=== PATIENT | female | born 1960 | race Caucasian/White ===

== ENCOUNTER 2019-09-10 10:25 | Outpatient (NON) | payer BC, SELFPAY ==
[2019-09-12 13:19] LABS: SARS-CoV-2 RNA PCR Negative
== END 2019-09-10 10:26 ==
PROVIDERS: PCP Emergency Medicine
DX: Z01.818 Encounter for other preprocedural examination (principal); Z11.59 Encounter for screening for other viral diseases
CPT/HCPCS: 87635; C9803; U0003

== ENCOUNTER → 2020-01-13 13:42 | Outpatient (CLI) | payer BC, SELFPAY ==
--- NOTE | ~2020-01-13 | CT_ITS ---
EXAMINATION: CT abdomen pelvis w con INDICATION: Severe right lower quadrant pain TECHNIQUE: Computed tomographic images of the abdomen and pelvis were obtained after the administrati on of 100 cc of Omnipaque 350 intravenous contrast. The dose-length product (DLP) was 1058.69 mGy-cm. Automated exposure control and iterative reconstruction technique were employed. COMPARISON: 10/07/2017 FINDINGS: The lung bases are clear. The heart size is normal. The gallbladder is surgically absent. T he liver is diffusely low in attenuation when compared with the spleen, consistent with hepatic steat osis. The spleen, pancreas, and left adrenal gland are normal. There is a stable 10 mm adenoma of the right adrenal gland. Hypoattenuating lesions in the kidneys, measuring up to 5 mm in the left kidney , are too small to characterize but likely represent cysts. No pathologically enlarged abdominal or p elvic lymph nodes are identified. There is no free intraperitoneal gas or evidence of bowel obstructi on. The appendix is normal. Surgical clips are noted at the base of the bladder. There are fat-contai seamus right inguinal and umbilical hernias. There is also a fat-containing ventral hernia immediately to the left of the umbilicus. There is moderate lumbar spondylosis. IMPRESSION: 1. No CT correlate for the patient's symptoms. 2. Fat-containing umbilical, periumbilical, and right inguinal hernias. Reviewed, dictated and finalized at location B.
--- NOTE | ~2020-01-13 | XR_ITS ---
XR hip RT 2V w AP pelvis DATE: 01/13/2020 14:00 INDICATION: Primary osteoarthritis. Right hip pain. TECHNIQUE: AP pelvis. AP and lateral views of right hip COMPARISON: None FINDINGS: Degenerative disc disease noted at L4-5 and L5-S1. The pubic symphysis and sacroiliac joint s are intact. No pelvic fracture or bone destruction is detected. Hip joint spaces are symmetric and relatively well preserved. No right hip fracture, dislocation, avascular necrosis or bone destruction is detected. IMPRESSION: Degenerative disc disease at L4-5 and L5-S1 No significant abnormality of the pelvis or right hip Reviewed, dictated and finalized at location A.
[2020-01-13 14:12] LABS: Estimated Glomerular Filt Rate > 60
== END ==
PROVIDERS: PCP Emergency Medicine; Visit Provider Emergency Medicine
DX: M15.0 Primary generalized (osteo)arthritis (principal); M51.36 Other intervertebral disc degeneration, lumbar region; M51.37 Other intervertebral disc degeneration, lumbosacral region; K42.9 Umbilical hernia without obstruction or gangrene
CPT/HCPCS: 73502; 74177; Q9967

== ENCOUNTER 2020-01-22 14:31 | Outpatient (CLI) | payer BC, SELFPAY ==
--- NOTE | 2020-01-22 14:34 | ECG_ITS ---
Measurements Intervals [place] Rate: 88 P: 44 AL: 181 QRS: 9 QRSD: 89 T: 15 QT: 375 QTc: 456 Interpretive Statements SINUS RHYTHM POSSIBLE LEFT ATRIAL ENLARGEMENT BASELINE ARTIFACT- I, II, III, AVR, AVL BORDERLINE ECG Electronically Signed On 01-22-2020 15:20:36 CDT by Eron Pollard D.O.
== END 2020-01-22 14:32 | disposition home or self-care (01) ==
LOC: ANHSURGERY 14:34
PROVIDERS: PCP Emergency Medicine; Visit Provider Surgery
DX: K42.9 Umbilical hernia without obstruction or gangrene (principal); I10 Essential (primary) hypertension; Z01.812 Encounter for preprocedural laboratory examination
CPT/HCPCS: 36415; 86850; 86900; 86901; 93005

== ENCOUNTER 2020-01-25 02:51 | Outpatient (CLI) | payer BC, SELFPAY ==
[2020-01-25 16:34] LABS: SARS-CoV-2 RNA PCR Negative
== END 2020-01-25 02:52 | disposition home or self-care (01) ==
LOC: ANHCOVIDDT 02:51
PROVIDERS: PCP Emergency Medicine; Visit Provider Surgery
DX: Z01.812 Encounter for preprocedural laboratory examination (principal); Z20.828 Contact with and (suspected) exposure to other viral communicable diseases
CPT/HCPCS: 87635; C9803; U0003

== ENCOUNTER 2020-01-27 01:07 | Day surgery (SDC) | payer BC, SELFPAY ==
[2020-01-22 13:22] VITALS: BMI 36.9
[2020-01-27] VITALS (9 sets, daily range): BP systolic 101–180; BP diastolic 50–93; PULSE 54–79; RESP 14–20; TEMP 36.4–37.4; O2SAT 96–100
[2020-01-27] MEDS: LACTATED RINGERS 1,000 ML 30 ML IV CONT ×2 (08:51→12:59)
--- NOTE | 2020-01-27 09:06 | WPDANESEPPF ---
Anes - Initial Pre Proc Eval Procedure: Operation Date: 01/27/20 10:30 Proposed Procedures p Laparoscopic Right Inguinal Hernia Repair with Mesh, Davinci Assisted, - Martinez Gaines DO s Anita-Umbilical Hernia Repair - Martinez Gaines DO Date/Time: 01/27/20 09:06 Surgeon: Martinez Gaines DO Pre Op Diagnosis: RT INGUINAL HERNIA, ANITA UMBILICAL HERNIA Patient Data Age: 60 Gender: F Height: 5 ft 9 in Weight: 114.5 kg Last Vital Signs Temp 36.4 C L 01/27/20 08:38 Pulse 79 01/27/20 08:38 Resp 20 01/27/20 08:38 BP 153/93 H 01/27/20 08:38 Pulse Ox 97 01/27/20 08:38 Allergies Allergy/AdvReac Type Severity Reaction Status Date / Time No Known Allergies Allergy Verified 01/27/20 08:40 Home Medications Medication Instructions Recorded Confirmed Type mupirocin 2 % topical ointment 1 applic TOPICAL .COMPLEX #22 gm 01/13/20 01/27/20 Rx tizanidine 2 mg capsule 2 mg PO TID PRN #90 cap 01/19/20 01/27/20 Rx amlodipine 5 mg PO DAILY 01/22/20 01/27/20 History cholecalciferol (vitamin D3) 125 mcg PO DAILY 01/22/20 01/27/20 History [Vitamin D3] losartan 50 mg PO DAILY 01/22/20 01/27/20 History Patient hx anesthesia problems: none Family hx anesthesia problems: none PMFSH Past Medical History Medical History Arthritis Arthritis of knee Depression Diabetes Generalized osteoarthritis of multiple sites HTN (hypertension) Inflammatory arthritis Right rotator cuff tendinitis (12/29/18) Shoulder injury Vision loss Weight gain Surgical History Surgical History History of bilateral oophorectomies History of History of cataract surgery History of cholecystectomy Family History Family History Father Acute myocardial infarction Mother Family history of malignant neoplasm Sibling Family history of malignant neoplasm, Onset Age: 42 Other Asthma Cerebrovascular accident Diabetes mellitus Family history of arthritis Family history of cardiovascular disease Hypertension Social History Social History Smoking status: Never smoker Alcohol intake: current Substance use: unknown Gender identity (if verbalized by the patient): Female Spiritual care concerns: No Anes - Eval Final PreProcedure Day of Procedure 01/27/20 09:06 Patient weight: obese Heart: regular rate and rhythm Lungs: clear to auscultation Airway: Mallampati scale class II Neurological: alert and oriented Last oral intake: >/= 8 hours ASA classification: III Emergent: no Anesthetic plan: proceed Anesthesia type and monitoring: general ETT and standard monitoring Informed Consent: The patient's anesthetic plan and its attendant risks and benefits were discussed with the patient/family/POA. Questions were solicited and answers provided to the satisfaction of the patient/family/POA.
[2020-01-27] MEDS: ACETAMINOPHEN 500 MG TABLET 1000 MG PO (09:42)
[2020-01-27] MEDS: KETOROLAC 15 MG/ML VIAL (*BKC) IV PUSH (09:44)
--- NOTE | 2020-01-27 10:38 | SUR.PREOP ---
update provided r/t to delay w/surgeon/acknowledges understanding. family update provided to spouse via telephone
--- NOTE | 2020-01-27 11:07 | WPDHPUPDATE1 ---
History and Physical Update Update Date/Time: 01/27/20 11:07 History and Physical has been reviewed, including an updated exam of the patient. There are NO changes in the patient's condition. Risks, benefits, and alternatives have been discussed and questions answered. Patient agrees to proceed with procedure.
[2020-01-27] MEDS: ceFAZolin 2 GM/D5W 50 ML 2 GM/50 ML BAG IVPB (11:38)
[2020-01-27] MEDS: BUPIVACAINE/EPINEPHRINE 0.5% 10 ML VIAL 30 ML INFILTRATE (12:52)
--- NOTE | 2020-01-27 13:11 | PM.PROC ---
Procedure Note - Detailed Date of procedure: 01/27/20 Pre-op diagnosis: 1. Right inguinal hernia 2. Incisional periumbilical hernia Post-op diagnosis: other (Indirect RIH, Incarcerated incisional hernia) Procedure performed: 1. Laparoscopic incarcerated incisional hernia repair 2. Laparoscopic right inguinal hernia repair with Progrip mesh, da Aicha assisted Description of procedure: Procedure as well as risks, benefits, and alternatives were discussed with the patient. Written consent was obtained and placed in chart prior to procedure. Patient was brought back to surgical suite. She was placed supine on operating table. Time-out was done to confirm patient and procedure. She was then intubated by Anesthesia Department. Her abdomen was prepped and draped in sterile fashion using chlorhexidine prep. 0.5% bupivacaine with epinephrine was infiltrated at each location for incision. An 8 mm incision was made in the left lateral abdomen, and a 5 mm Optiview trocar was advanced through the abdominal layers under direct visualization. Once inside the abdominal cavity, carbon dioxide insufflation was used to create a pneumoperitoneum. A camera was inserted and the abdominal cavity was inspected. The patient was placed in slight Trendelenburg position. An 8 millimeter incision was made on the right lateral abdomen and an 8 millimeter trocar was inserted under direct visualization. I then identified the incarcerated incisional hernia. This was just superior and to the left of the umbilicus. No significant umbilical hernia was identified. Another 5 mm incision was made in the left upper quadrant a 5 mm port was placed under direct visualization. This allowed me to laparoscopically reduce the incarcerated contents of the hernia. The hernia appeared to be incarcerated with omentum. Once the omentum was reduced, I was able to easily identify the hernia defect. This measured approximately 1 cm and was just superior and to the left of the umbilicus. An 8 mm incision was made at the skin directly over this hernia. A granny needle was then used to pass 0 Ethibond suture to repair this defect. Total of 3 sutures were placed to approximate the fascial edges of the hernia defect. These were clamped and left in place until the end of the procedure. An 8 mm port was then placed directly through this hernia defect. The robotic arms were brought up to the patient's bedside and secured to the ports. The camera and instruments were inserted. I then moved over to the robotic console and took control of the camera and instruments. After careful inspection of the abdominal cavity, I began scoring the peritoneum along the right lower quadrant using scissors with electrocautery. The preperitoneal plane was entered and this was carefully dissected caudally along the inferior epigastric vessels. Careful dissection with scissors with electrocautery and blunt dissection was used to continue this dissection. I dissected far enough laterally to allow for mesh placement, and also dissected medially to identify the pubic arch and Jeffery's ligament. The hernia sac was identified and carefully dissected posteriorly. The round ligament was also identified and the peritoneum was carefully dissected far enough posteriorly to allow for mesh placement. In order to ensure that the mesh was lying completely flat, I transected the round ligament at the deep inguinal ring using scissors with electrocautery. Once an adequate pocket was created, I then placed the mesh within the preperitoneal pocket and carefully unfolded it. The mesh was centered on the hernia defect with adequate overlap circumferentially. The inferior edge of the mesh was inspected to ensure that it was far enough away from the peritoneal edge. The mesh appeared in proper position overlying the entire myopectineal orifice. The peritoneum was then closed over the mesh using a 3-0 V-lock running absorbable suture. The robotic ins
[2020-01-27] MEDS: fentaNYL CITRATE INJ (*CRX) 100 MCG/2 ML VIAL 25 MCG IV PUSH ×4 (14:15→14:40)
== END 2020-01-27 15:15 | disposition home or self-care (01) ==
PROVIDERS: PCP Emergency Medicine; Visit Provider Surgery
PROC: 8E0Y4CZ Robotic Assisted Procedure of Lower Extremity, Percutaneous Endoscopic Approach (ICD-10-PCS; CPT 49650; principal; 2020-01-27 10:30)
PROC: (CPT 49650; 2020-01-27 10:30)
DX: K40.90 Unilateral inguinal hernia, without obstruction or gangrene, not specified as recurrent (principal); K43.0 Incisional hernia with obstruction, without gangrene; I10 Essential (primary) hypertension; E11.9 Type 2 diabetes mellitus without complications; F32.9 Major depressive disorder, single episode, unspecified; M19.90 Unspecified osteoarthritis, unspecified site; E66.9 Obesity, unspecified; Z68.37 Body mass index [BMI] 37.0-37.9, adult
CPT/HCPCS: 49650; 49655; S2900; A9270; C1781; J0690; J1100; J1885; J2405; J2704; J2710; J3010; J7120

== ENCOUNTER → 2020-05-25 16:04 | Outpatient (CLI) | payer BC, SELFPAY ==
--- NOTE | ~2020-05-25 | CT_ITS ---
EXAMINATION: CT abdomen pelvis wo con DATE: 05/25/2020 16:16 INDICATION: Right lower quadrant abdominal pain. Nausea. TECHNIQUE: Computed tomography (CT) of the abdomen and pelvis was performed without intravenous contr ast. Automated exposure control and iterative reconstruction technique were employed. The dose-length product was 1079.09 mGy-cm. COMPARISON: CT abdomen and pelvis 01/13/2020, 10/07/17 FINDINGS: The visualized portions of the lung bases are clear without pneumonia or pleural effusion. The heart size is normal. No pericardial effusion. There is diffuse hepatic steatosis. There are alcantar ges of cholecystectomy. The spleen, pancreas, and left adrenal gland are normal. There is a 12 mm mas s in right adrenal gland measuring low-attenuation, consistent with an adenoma. Right kidney is evonne l. There is a 5 mm cyst in left kidney. There is a 2 mm stone in left kidney. There is diverticulosis of the colon without evidence of diverticulitis. There are no dilated loops of bowel. The appendix i s normal. There is chronic fat stranding at the root of the small bowel mesentery, likely not clinica lly significant. There are no pathologically enlarged lymph nodes. There is no free intraperitoneal f luid. There is a right inguinal hernia containing fat. There is mild thoracic spondylosis and severe lumbar spondylosis. IMPRESSION: 1. Right inguinal hernia containing fat. Reviewed, dictated and finalized at location B. 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
== END ==
PROVIDERS: PCP Emergency Medicine; Visit Provider Emergency Medicine
DX: K40.90 Unilateral inguinal hernia, without obstruction or gangrene, not specified as recurrent (principal)
CPT/HCPCS: 74176

== ENCOUNTER → 2020-07-04 15:26 | Outpatient (CLI) | payer BC, SELFPAY ==
--- NOTE | ~2020-07-04 | MR_ITS ---
EXAMINATION: MR knee RT wo con DATE: 07/04/2020 16:14 INDICATION: Right knee pain TECHNIQUE: Magnetic resonance imaging (MRI) of the right knee was performed without intravenous contr ast. Sequences included coronal PD-weighted FSE, coronal PD-weighted FS FSE, sagittal T2-weighted FS E, sagittal PD-weighted FS FSE and axial PD weighted fat saturated FSE. COMPARISON: None. FINDINGS: Medial compartment: Complex medial meniscal tear which includes full-thickness radial tear at the posterior root and long itudinal horizontal tear extending to near the free edge at the medial extruded meniscal body. Partia l-thickness cartilage loss with smooth chondral surface and without degenerative subchondral changes along the anterior to central weightbearing medial femoral condyle and along the margins of the media l tibial plateau. Lateral compartment: Complex lateral meniscal tear with longitudinal horizontal tear extending from the anterior to the po sterior horn and with secondary tear planes at the lateral meniscal body. Deep chondral ulceration an d fissuring extending across the anterior to central weightbearing lateral femoral condyle with very subtle cortical irregularity at the central weightbearing lateral femoral condyle. There is deep alec dral fissuring along the posterior third of the lateral tibial plateau. Patellofemoral compartment: Partial-thickness patellar cartilage loss with chondral surface irregularity primarily along the apic al ridge and medial facet. Deep chondral fissuring with small subchondral osteophytes along the infer ior margin of the medial trochlea. Trochlear cartilage appears otherwise relatively preserved. Ligaments and tendons: Complete tear of the anterior cruciate ligament with increased signal intensity along the disorganize d appearing torn ligament fibers. The posterior cruciate ligament is normal. The medial collateral li gament and fibular collateral ligament complex are normal. Mild tendinopathy at the osseous insertion s of the patellar and distal quadriceps tendons. The visualized medial and lateral hamstring tendons as well as the iliotibial band are normal. Fluid: Small right knee joint effusion. No loose osteochondral bodies identified. There is a small Rendon's c yst as well as an additional ganglion cyst extending inferiorly along the anterior margin of the grac ilis tendon. Osseous/other: There is marrow edema surrounding nondisplaced impaction fractures along the posterior rim of both th e medial and lateral tibial plateaus consistent with an anterior tibial subluxation injury likely occ urring in conjunction with the anterior cruciate ligament tear. No other fractures or bone contusions . No pathologic marrow replacing process. IMPRESSION: 1. Complete anterior cruciate ligament tear and nondisplaced likely impaction fracture along the post erior rim of the medial and lateral tibial plateaus suggesting an anterior tibial subluxation injury. 2. Complex medial and lateral meniscal tears. 3. Mild tricompartmental osteoarthritis with moderate to high-grade chondromalacia most prominent in the lateral and patellofemoral compartments. 4. Mild tendinosis at the osseous insertions of the patellar and distal quadriceps tendons. 5. Small right knee joint effusion, small Rendon's cyst additional small ganglion cyst at the posterom edial aspect of the knee. Reviewed, dictated and finalized at location B. 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 Complete anterior cruciate ligament tear and nondisplaced likely impaction f racture along the posterior rim of the medial and lateral tibial plateaus sugge sting an anterior tibial subluxation injury. 2. Complex medial and lateral meniscal tears. 3. Mild tricompartmental osteoarthritis with moderat
== END ==
PROVIDERS: Visit Provider Emergency Medicine
DX: M25.561 Pain in right knee (principal); M25.461 Effusion, right knee; M25.361 Other instability, right knee; S83.511A Sprain of anterior cruciate ligament of right knee, initial encounter; S82.144A Nondisplaced bicondylar fracture of right tibia, initial encounter for closed fracture; S83.271A Complex tear of lateral meniscus, current injury, right knee, initial encounter; S83.231A Complex tear of medial meniscus, current injury, right knee, initial encounter; M17.11 Unilateral primary osteoarthritis, right knee; M94.261 Chondromalacia, right knee; M71.21 Synovial cyst of popliteal space [Baker], right knee
CPT/HCPCS: 73721

== ENCOUNTER → 2020-07-30 02:38 | Outpatient (CLI) | payer BC, SELFPAY ==
[2020-07-30 20:23] LABS: SARS-CoV-2 RNA PCR Negative
== END ==
PROVIDERS: PCP Emergency Medicine; Visit Provider Orthopaedic Surgery
DX: Z01.812 Encounter for preprocedural laboratory examination (principal); Z20.822 Contact with and (suspected) exposure to COVID-19
CPT/HCPCS: C9803; U0003; U0005

== ENCOUNTER 2020-08-02 01:46 | Day surgery (SDC) | payer BC, SELFPAY ==
[2020-07-20 12:08] VITALS: BMI 35.2
--- NOTE | 2020-08-01 11:15 | WPDANESEPPF ---
Anes - Initial Pre Proc Eval Procedure: Operation Date: 08/02/20 13:30 Proposed Procedures p Right Knee Arthroscopy, Proceed As Indicated - Edwin Caban MD Date/Time: 08/01/20 11:15 Surgeon: Edwin Caban MD Pre Op Diagnosis: right medial and lateral meniscus tear Patient Data Age: 60 Gender: F Height: 1.75 m Weight: 108 kg Allergies Allergy/AdvReac Type Severity Reaction Status Date / Time No Known Allergies Allergy Verified 08/02/20 12:26 Home Medications Medication Instructions Recorded Confirmed Type cholecalciferol (vitamin D3) 125 mcg PO DAILY 01/22/20 08/02/20 History [Vitamin D3] losartan 50 mg PO DAILY 01/22/20 08/02/20 History azelastine 137 mcg (0.1 %) nasal 1 spray INTRANASAL Q12H #30 ml 05/16/20 08/02/20 Rx spray aerosol chlorhexidine gluconate 4 % 1 applic TOPICAL ONCE #237 ml 07/18/20 08/02/20 Rx topical liquid esomeprazole magnesium [Nexium] 20 mg PO BID 07/20/20 08/02/20 History tizanidine [Zanaflex] 4 mg PO TID PRN 07/20/20 08/02/20 History metformin 500 mg tablet 500 mg PO BID #60 tablet 07/22/20 08/02/20 Rx Patient hx anesthesia problems: none Family hx anesthesia problems: none PMFSH Past Medical History Medical History (Updated 08/01/20 @ 11:16 by Kashmir Almodovar MD) Arthritis Arthritis of knee Depression Diabetes Generalized osteoarthritis of multiple sites HTN (hypertension) Inflammatory arthritis Myositis Obesity Osteoporosis Primary osteoarthritis of right knee Right rotator cuff tendinitis (12/29/18) Shoulder injury Vision loss Vitamin D deficiency Wears glasses Weight gain Surgical History Surgical History H/O inguinal hernia repair 01/27/2020: lap RIH/periumbilical hernia repair w/ Progrip mesh, davinci assisted History of bilateral oophorectomies History of History of cataract surgery History of cholecystectomy Family History Family History Father Acute myocardial infarction Mother Family history of malignant neoplasm Sibling Family history of malignant neoplasm, Onset Age: 42 Other Asthma Cerebrovascular accident Diabetes mellitus Family history of arthritis Family history of cardiovascular disease Hypertension Social History Social History Smoking status: Never smoker Alcohol intake: current Substance use: unknown Living arrangements: with family Gender identity (if verbalized by the patient): Female Spiritual care concerns: No Anes - Eval Final PreProcedure Day of Procedure 08/01/20 11:15 Patient weight: obese Heart: regular rate and rhythm Lungs: clear to auscultation and normal air movement Airway: Mallampati scale class II Neurological: alert and oriented Last oral intake: >/= 8 hours ASA classification: III Emergent: no Anesthetic plan: proceed Anesthesia type and monitoring: general LMA Informed Consent: The patient's anesthetic plan and its attendant risks and benefits were discussed with the patient/family/POA. Questions were solicited and answers provided to the satisfaction of the patient/family/POA.
[2020-08-02] VITALS (8 sets, daily range): BP systolic 135–180; BP diastolic 78–95; PULSE 62–78; RESP 14–61; TEMP 36.1–36.4; O2SAT 94–100
--- NOTE | 2020-08-02 07:23 | WPDHPUPDATE1 ---
History and Physical Update Update Date/Time: 08/02/20 07:23 History and Physical has been reviewed, including an updated exam of the patient. There are NO changes in the patient's condition. Risks, benefits, and alternatives have been discussed and questions answered. Patient agrees to proceed with procedure.
--- NOTE | 2020-08-02 11:59 | SUR.PREOP ---
patient states she has used crutches before. reviewed crutch training, patient has no questions at this time. given printed materials to reference.
[2020-08-02] MEDS: CELECOXIB 200 MG CAPSULE PO (12:39)
[2020-08-02] MEDS: ACETAMINOPHEN 500 MG TABLET 1000 MG PO (12:39)
[2020-08-02] MEDS: LACTATED RINGERS 1,000 ML 30 ML IV CONT ×2 (12:40→15:42)
[2020-08-02 12:53] LABS: Glucose Point of Care 124 (65-105)
--- NOTE | 2020-08-02 14:00 | SUR.PREOP ---
patient given multiple updates on time delay. resting comfortably at this time.
[2020-08-02] MEDS: ceFAZolin 2 GM/D5W 50 ML 2 GM/50 ML BAG IVPB (14:34)
[2020-08-02] MEDS: BUPIVACAINE HCL 0.5% PF 30 ML VIAL INFILTRATE (14:53)
--- NOTE | 2020-08-02 15:55 | PM.PROC ---
Procedure Note - Detailed Date of procedure: 08/02/20 Pre-op diagnosis: right medial and lateral meniscus tear Post-op diagnosis: same Procedure performed: RIGHT KNEE SCOPE WITH PARTIAL LATERAL MENISCECTOMY AND MAJOR SYNOVECTOMY Description of procedure: PATIENT WAS TAKEN TO THE OR. RIGHT LEG WAS PREPPED AND DRAPED STERILE. TROCARS WERE PLACED IN THE USUAL FASHION. CAMERA WAS INTRODUCED. THERE WAS CHONDROMALACIA TO THE PATELLA FEMORAL JOINT. THERE WAS A LOT OF SYNOVITIS IN ALL COMPARTMENTS. THE MEDIAL COMPARTMENT SHOWED MILD CHONDROMALACIA TO THE MEDIAL FEMORAL CONDYLE. A SHAVER WAS USED TO PREFORM A CHONDROPLASTY. THERE WAS NO MEDIAL MENISCUS TEAR. THE ACL WAS NEAR COMPLETELY TORN INTACT. THE LATERAL MENISCUS WAS TORN IN A COMPLEX CONFIGURATION. THERE WAS A LARGE NEAR FULL THICKNESS DEFECT TO THE LATERAL FEMORAL CONDYLE. THE LATERAL MENISCUS UNDERWENT RESECTION OF ABOUT 25%. THE LATERAL FEMORAL CONDYLE UNDERWENT CHONDROPLASTY. A SYNOVECTOMY WAS PREFORMED. THE PATELLO FEMORAL JOINT UNDERWENT CHONDROPLASTY. SYNOVECTOMY WAS PREFORMED IN THE SUPERIOR MEDIAL COMPARTMENT. THE INSTRUMENTS WERE REMOVED AFTER THOROUGH IRRIGATION OF THE KNEE JOINT.THE WOUNDS WERE APPROXIMATED WITH 4.0 NYLON. STERILE DRESSING WAS APPLIED. PATIENT WAS EXTUBATED. Anesthesia: GLMA Surgeon: Edwin Caban MD Estimated blood loss (mL): 5 Complications: No immediate complications Condition: stable Disposition: PACU
[2020-08-02 16:00] LABS: Glucose Point of Care 133 (65-105)
[2020-08-02] MEDS: fentaNYL CITRATE INJ (*CRX) 100 MCG/2 ML VIAL 25 MCG IV PUSH ×4 (16:17→16:28)
[2020-08-02] MEDS: oxyCODONE HCL (*CRX) 5 MG TAB IR PO (17:17)
== END 2020-08-02 17:56 | disposition home or self-care (01) ==
PROVIDERS: PCP Emergency Medicine; Visit Provider Orthopaedic Surgery
PROC: (CPT 29870; principal; 2020-08-02 13:30)
DX: S83.271A Complex tear of lateral meniscus, current injury, right knee, initial encounter (principal); X50.9XXA Other and unspecified overexertion or strenuous movements or postures, initial encounter; M94.261 Chondromalacia, right knee; M65.861 Other synovitis and tenosynovitis, right lower leg; Z79.84 Long term (current) use of oral hypoglycemic drugs; M19.90 Unspecified osteoarthritis, unspecified site; F32.9 Major depressive disorder, single episode, unspecified; E11.9 Type 2 diabetes mellitus without complications; I10 Essential (primary) hypertension; M60.9 Myositis, unspecified; M81.0 Age-related osteoporosis without current pathological fracture; E55.9 Vitamin D deficiency, unspecified; E66.9 Obesity, unspecified; Z68.34 Body mass index [BMI] 34.0-34.9, adult
CPT/HCPCS: 29881; 29876; 82948; A9270; J0690; J1100; J2250; J2370; J2405; J2704; J3010; J7120

== ENCOUNTER 2020-08-11 10:11 | Outpatient (CLI) | payer BC, SELFPAY | END 2020-08-11 10:12 | disposition home or self-care (01) | LOC: ANHCOVIDVC 10:11 | PROVIDERS: PCP Emergency Medicine | DX: Z23 Encounter for immunization (principal) | CPT/HCPCS: 0001A; 91300 ==

== ENCOUNTER 2020-09-01 10:11 | Outpatient (CLI) | payer BC, SELFPAY | END 2020-09-01 10:12 | disposition home or self-care (01) | LOC: ANHCOVIDVC 10:11 | PROVIDERS: PCP Emergency Medicine | DX: Z23 Encounter for immunization (principal) | CPT/HCPCS: 0002A; 91300 ==

== ENCOUNTER 2021-03-14 02:40 | Day surgery (SDC) | payer BC, SELFPAY ==
[2021-02-23 14:24] VITALS: BMI 34.0
[2021-03-14 08:25] VITALS: BP 143/80; PULSE 82; RESP 18; TEMP 36.7; O2SAT 98
--- NOTE | 2021-03-14 08:38 | WPDANESEPPF ---
Anes - Initial Pre Proc Eval Procedure: Operation Date: 03/14/21 09:30 Proposed Procedures p Esophagogastroduodenoscopy & Colonoscopy - Jeronimo Graham MD Date/Time: 03/14/21 08:38 Surgeon: Jeronimo Graham MD Pre Op Diagnosis: GERD, dysphagia, RLQ pain, Diarrhea Patient Data Age: 61 Gender: F Height: 1.75 m Weight: 103.9 kg Last Vital Signs Temp 36.7 C 03/14/21 08:25 Pulse 82 03/14/21 08:25 Resp 18 03/14/21 08:25 BP 143/80 H 03/14/21 08:25 Pulse Ox 98 03/14/21 08:25 Allergies Allergy/AdvReac Type Severity Reaction Status Date / Time No Known Allergies Allergy Verified 03/14/21 08:24 Home Medications Medication Instructions Recorded Confirmed Type cholecalciferol (vitamin D3) 125 mcg PO DAILY 01/22/20 02/23/21 History [Vitamin D3] losartan 100 mg tablet 100 mg PO DAILY #90 tablet 10/14/20 02/23/21 Rx metformin 1,000 mg tablet 1,000 mg PO BID #180 tablet 12/27/20 02/23/21 Rx amlodipine 10 mg tablet 10 mg PO DAILY #90 tablet 02/01/21 02/23/21 Rx azelastine 1 spray INTRANASAL Q12H PRN 02/23/21 02/23/21 History tizanidine 2 mg tablet 4 mg PO TID PRN #90 tablet 03/13/21 Rx Patient hx anesthesia problems: none Family hx anesthesia problems: none Results Review: All pre-operative results and documents have been reviewed as part of the pre-operative evaluation. [facility] Past Medical History Medical History Arthritis Arthritis of knee Depression Diabetes Generalized osteoarthritis of multiple sites HTN (hypertension) Inflammatory arthritis Myositis Obesity Osteoporosis Primary osteoarthritis of right knee Right rotator cuff tendinitis (12/29/18) Shoulder injury Vision loss Vitamin D deficiency Wears glasses Weight gain Surgical History Surgical History H/O inguinal hernia repair 01/27/2020: lap RIH/periumbilical hernia repair w/ Progrip mesh, davinci assisted History of bilateral oophorectomies History of History of cataract surgery History of cholecystectomy Family History Family History Father Acute myocardial infarction Mother Family history of malignant neoplasm Sibling Family history of malignant neoplasm, Onset Age: 42 Other Asthma Cerebrovascular accident Diabetes mellitus Family history of arthritis Family history of cardiovascular disease Hypertension Social History Social History Smoking status: Never smoker Alcohol intake: current Drinks per week: 2 Substance use: never Living arrangements: with family Gender identity (if verbalized by the patient): Female Spiritual care concerns: No Anes - Eval Final PreProcedure Day of Procedure 03/14/21 08:38 Patient weight: obese Heart: regular rate and rhythm Lungs: clear to auscultation and normal air movement Airway: Mallampati scale class II Neurological: alert and oriented Last oral intake: >/= 8 hours ASA classification: III Emergent: no Anesthetic plan: proceed Anesthesia type and monitoring: general GIVS Results Review: All pre-operative results and documents have been reviewed as part of the pre-operative evaluation. Informed Consent: The patient's anesthetic plan and its attendant risks and benefits were discussed with the patient/family/POA. Questions were solicited and answers provided to the satisfaction of the patient/family/POA.
[2021-03-14] MEDS: LACTATED RINGERS 1,000 ML 150 ML IV CONT (08:41)
[2021-03-14 08:42] LABS: Glucose Point of Care 127 mg/dl (65-105)
--- NOTE | 2021-03-14 09:39 | WPDHPUPDATE1 ---
History and Physical Update Update Date/Time: 03/14/21 09:39 History and Physical has been reviewed, including an updated exam of the patient. There are NO changes in the patient's condition. Risks, benefits, and alternatives have been discussed and questions answered. Patient agrees to proceed with procedure.
--- NOTE | 2021-03-14 09:58 | SUR.OPER ---
EGD ended at 949, Colonoscopy started at 954
[2021-03-14 10:20] VITALS: BP 140/90; PULSE 81; RESP 22; O2SAT 100
[2021-03-14 10:30] VITALS: BP 160/81; PULSE 77; RESP 22; O2SAT 100
[2021-03-14 10:40] VITALS: BP 145/87; PULSE 84; RESP 19; O2SAT 100
== END 2021-03-14 10:48 | disposition home or self-care (01) ==
PROVIDERS: PCP Emergency Medicine; Visit Provider Internal Medicine Gastroenterology
PROC: 0DJ08ZZ Inspection of Upper Intestinal Tract, Via Natural or Artificial Opening Endoscopic (ICD-10-PCS; CPT 43235; principal; 2021-03-14 09:30)
DX: Z12.11 Encounter for screening for malignant neoplasm of colon (principal); K57.30 Diverticulosis of large intestine without perforation or abscess without bleeding; K63.5 Polyp of colon; K64.8 Other hemorrhoids; K21.00 Gastro-esophageal reflux disease with esophagitis, without bleeding; R10.11 Right upper quadrant pain; Z79.84 Long term (current) use of oral hypoglycemic drugs; M19.90 Unspecified osteoarthritis, unspecified site; F32.9 Major depressive disorder, single episode, unspecified; E11.9 Type 2 diabetes mellitus without complications; I10 Essential (primary) hypertension; M60.9 Myositis, unspecified; M81.0 Age-related osteoporosis without current pathological fracture; E55.9 Vitamin D deficiency, unspecified; E66.9 Obesity, unspecified; Z68.33 Body mass index [BMI] 33.0-33.9, adult; R76.8 Other specified abnormal immunological findings in serum; R53.83 Other fatigue
CPT/HCPCS: 45385; 43239; 82948; 88305; J2704; J7120

== ENCOUNTER 2021-11-30 08:45 | Outpatient (CLI) | payer BC, SELFPAY ==
--- NOTE | 2021-11-30 11:00 | NEURO_ITS ---
Impression: # Complains of paresthesia of lower extremities. # Normal nerve conduction study. # No Tarsal Tunnel Syndrome. # Normal needle/EMG exam. # Clinical correlation recommended. Nerve Conduction Studies Anti Sensory Summary Table Stim Site NR Peak (ms) P-T Amp (?V) Site1 Site2 Delta-P (ms) Dist (cm) Soham (m/s) Left Sup Fibular Anti Sensory (Ant Lat Mall) 14 cm 3.3 5.7 14 cm Ant Lat Mall 3.3 16.0 48 Right Sup Fibular Anti Sensory (Ant Lat Mall) 14 cm 3.1 5.0 14 cm Ant Lat Mall 3.1 16.0 52 Left Sural Anti Sensory (Lat Mall) Calf 3.3 13.8 Calf Lat Mall 3.3 16.0 48 Right Sural Anti Sensory (Lat Mall) Calf 3.7 46.4 Calf Lat Mall 3.7 16.0 43 Motor Summary Table Stim Site NR Onset (ms) O-P Amp (mV) Site1 Site2 Delta-0 (ms) Dist (cm) Soham (m/s) Left Lateral Plantar Motor (ADM) Med Mall 4.9 1.7 Right Lateral Plantar Motor (ADM) Med Mall 4.8 0.4 Left Peroneal Motor (Vastus Med) Ankle 4.1 2.6 Popit Ankle 8.5 40.0 47 Popit 12.6 2.6 Right Peroneal Motor (Vastus Med) Ankle 4.0 1.5 Popit Ankle 7.8 37.0 47 Popit 11.8 1.2 Left Tibial Motor (Abd Joseph Brev) Ankle 4.4 5.6 Knee Ankle 9.7 42.0 43 Knee 14.1 3.1 Right Tibial Motor (Abd Joseph Brev) Ankle 4.9 3.5 Knee Ankle 10.0 41.0 41 Knee 14.9 2.4 F Wave Studies NR F-Lat (ms) L-R F-Lat (ms) Left Peroneal (Mrkrs) (EDB) 51.72 0.75 Right Peroneal (Mrkrs) (EDB) 52.47 0.75 Left Tibial (Mrkrs) (Abd Hallucis) 53.29 0.15 Right Tibial (Mrkrs) (Abd Hallucis) 53.13 0.15 EMG Side Muscle Nerve Root Ins Act Fibs Amp Dur Recrt Comment Right AntTibialis Dp Br Fibular L4-5 Nml Nml Nml Nml Nml Right Gastroc Tibial S1-2 Nml Nml Nml Nml Nml Right Fibularis Long Sup Br Fibular L5-S1 Nml Nml Nml Nml Nml Right Flex Dig Long Tibial L5-S2 Nml Nml Nml Nml Nml Right Ext Dig Brev Dp Br Fibular L5, S1 Nml Nml Nml Nml Nml Left AntTibialis Dp Br Fibular L4-5 Nml Nml Nml Nml Nml Left Gastroc Tibial S1-2 Nml Nml Nml Nml Nml Left Fibularis Long Sup Br Fibular L5-S1 Nml Nml Nml Nml Nml Left Flex Dig Long Tibial L5-S2 Nml Nml Nml Nml Nml Left Ext Dig Brev Dp Br Fibular L5, S1 Nml Nml Nml Nml Nml Right Ext Dig Long Dp Br Fibular L5-S1 Nml Nml Nml Nml Nml Left Ext Dig Long Dp Br Fibular L5-S1 Nml Nml Nml Nml Nml MTDD
== END 2021-11-30 08:46 | disposition home or self-care (01) ==
PROVIDERS: PCP Emergency Medicine
DX: R20.2 Paresthesia of skin (principal)
CPT/HCPCS: 95886; 95911

== ENCOUNTER → 2022-05-01 16:43 | Outpatient (CLI) | payer BC, SELFPAY ==
--- NOTE | ~2022-05-01 | MM_ITS ---
EXAMINATION: MM screening eleonora BI w tommy HISTORY: Screening mammogram TECHNIQUE: Craniocaudal and mediolateral oblique 3-D tomosynthesis images were obtained and synthetic 2-D images were generated. CAD analysis was submitted and interpreted. COMPARISON: 02/21/2018 diagnostic left mammogram and limited left breast ultrasound 02/14/2018 bilateral screening mammogram BREAST PARENCHYMAL COMPOSITION: There are scattered areas of fibroglandular density. FINDINGS: Stable mild fibroglandular asymmetry since 02/14/2018. There is no evidence of suspicious m ass, calcification, or architectural distortion to suggest malignancy in either breast. There has bee n no suspicious interval change. IMPRESSION: 1. No mammographic evidence of malignancy. 2. Recommend routine screening mammography in one year. BI-RADS Category 2: Benign finding(s). Reviewed, dictated and finalized at location A. EL ENGINE OPERATOR
== END ==
PROVIDERS: PCP Emergency Medicine; Visit Provider Emergency Medicine
DX: Z12.31 Encounter for screening mammogram for malignant neoplasm of breast (principal)
CPT/HCPCS: 77063; 77067

== ENCOUNTER → 2022-07-23 15:38 | Outpatient (CLI) | payer BC, SELFPAY ==
--- NOTE | ~2022-07-23 | XR_ITS ---
EXAM: XR hand LT 2V DATE: 07/23/2022 15:51 HISTORY: Pain in left and right hand;worsening pain Lt hand . COMPARISON: None available. FINDINGS: Normal mineralization. No fracture or dislocation. No lytic or blastic lesion. Joint space changes typical of osteoarthritis, involving the DIP, PIP, MCP, first interphalangeal, and trapeziom etacarpal joints, most pronounced in the DIP joints. No erosion or periosteal change. Soft tissues wi thin normal limits. IMPRESSION: Polyarticular osteoarthritis of the left hand, moderate in the DIP joints of the fingers. Reviewed, dictated and finalized at location K.
== END ==
PROVIDERS: PCP Emergency Medicine; Visit Provider Emergency Medicine
DX: M79.641 Pain in right hand (principal); M79.642 Pain in left hand; M19.042 Primary osteoarthritis, left hand
CPT/HCPCS: 73120

== ENCOUNTER 2022-09-02 18:41 | Emergency (ER) | payer BC, SELFPAY ==
--- NOTE | ~2022-09-02 | XR_ITS ---
EXAMINATION: XR toe 5th LT min 2V INDICATION: Left fifth toe pain TECHNIQUE: Four views of the left fifth toe are obtained. COMPARISON: 10/20/2018 FINDINGS: There is soft tissue swelling of the fifth toe. The distal interphalangeal joint is fused. No displaced fracture is identified. IMPRESSION: 1. Soft tissue swelling without acute osseous abnormality. Reviewed, dictated and finalized at location F.
[2022-09-02 18:56] VITALS: BP 120/65; PULSE 84; RESP 18; TEMP 36; O2SAT 96
--- NOTE | 2022-09-02 19:22 | ED.LOWEXIN ---
HPI - Extremity Injury (Lower) General Chief Complaint: Extremity Injury, Lower Stated Complaint: toe injury( lt foot) Source: patient Mode of arrival: ambulatory Limitations: no limitations History of Present Illness HPI Narrative: 62-year-old female presents to [facility] with complaints of pain, swelling and bruising to her left 5th toe since yesterday; patient reports that she stubbed her toe last night on a wooden table. Patient has been taking [id number] ibuprofen minimal relief. Patient denies numbness, tingling, open wounds. MD complaint: other (toe injury) Onset (ago): day(s) (1) Injury: Left: toes Related Data Home Medications Medication Instructions Recorded Confirmed cholecalciferol (vitamin D3) 125 125 mcg PO DAILY 01/22/20 09/02/22 mcg (5,000 unit) tablet (Vitamin D3) pregabalin 150 mg capsule (Lyrica) 150 mg PO BID 12/12/21 09/02/22 Allergies Allergy/AdvReac Type Severity Reaction Status Date / Time No Known Allergies Allergy Verified 09/02/22 19:34 Review of Systems Constitutional: Constitutional: Denies chills, Denies fatigue, Denies fever(s) and Denies weakness ENT: Denies vertigo, Denies dizziness, Denies epistaxis and Denies nasal congestion Cardiovascular: Cardiovascular: Denies chest pain Respiratory: Respiratory: Denies cough, Denies dyspnea and Denies wheezing Gastrointestinal: Gastrointestinal: Denies diarrhea, Denies nausea and Denies vomiting Musculoskeletal: Comments: Pain, swelling and bruising to left 5th toe Integumentary/Breasts: Skin/Breast: Denies pruritus, Denies rash and Denies skin ulcer Neurologic: Denies dizziness and Denies syncope [facility] Past Medical History Medical History Abnormal CT scan Adrenal mass Arthritis Arthritis of knee Depression Diabetes Generalized osteoarthritis of multiple sites GERD with esophagitis HTN (hypertension) Hx of adenomatous colonic polyps IBS (irritable bowel syndrome) Impingement syndrome of left shoulder Inflammatory arthritis Irritable bowel syndrome with mixed bowel habits Myositis Obesity Obesity (BMI 30-39.9) Osteoporosis Plantar fasciitis of left foot Primary osteoarthritis of right knee Primary stabbing headache Reactive depression Right inguinal hernia Right rotator cuff tendinitis (12/29/18) RLQ abdominal pain Shoulder injury Vision loss Vitamin D deficiency Wears glasses Weight gain Surgical History Surgical History H/O inguinal hernia repair 01/27/2020: lap RIH/periumbilical hernia repair w/ Progrip mesh, davinci assisted History of bilateral oophorectomies History of History of cataract surgery History of cholecystectomy History of cholecystectomy Family History Family History Father Acute myocardial infarction Mother Family history of malignant neoplasm Sibling Family history of malignant neoplasm, Onset Age: 42 Other Asthma Cerebrovascular accident Diabetes mellitus Family history of arthritis Family history of cardiovascular disease Hypertension Social History Social History Smoking status: Never smoker Alcohol intake: current Drinks per week: 2 Substance use: never Living arrangements: with family Occupation/Education: occupation Gender identity (if verbalized by the patient): Female Spiritual care concerns: No Comments At time of signature, I agree with nursing past medical, surgical, social and family history. There is no relevant family history pertinent to the presenting complaint. Exam Const: General: healthy appearing and no acute distress Nutritional Appearance: well nourished Orientation/consciousness: patient oriented x3 Limitations: no limitations Neck: Neck: normal visual inspection R
== END 2022-09-02 19:45 | disposition home or self-care (01) ==
PROVIDERS: Emergency Provider Nurse Practitioner Family; PCP Emergency Medicine
DX: S90.122A Contusion of left lesser toe(s) without damage to nail, initial encounter (principal); W22.03XA Walked into furniture, initial encounter; E11.9 Type 2 diabetes mellitus without complications; K21.00 Gastro-esophageal reflux disease with esophagitis, without bleeding; I10 Essential (primary) hypertension; M81.0 Age-related osteoporosis without current pathological fracture; E66.9 Obesity, unspecified; Z68.34 Body mass index [BMI] 34.0-34.9, adult; M17.11 Unilateral primary osteoarthritis, right knee
CPT/HCPCS: 73660; 99213; G0463

== ENCOUNTER 2022-09-27 14:50 | Outpatient (CLI) | payer BC, SELFPAY ==
--- NOTE | 2022-09-27 14:54 | ECHO_ITS ---
Patient Info Name: Patricia Dangelo Age: 62 years : 1960 Gender: Female Ht: 69 in Wt: 220 lbs BSA: 2.24 m2 HR: 88 bpm BP: 146 / 92 mmHg Heart Rhythm: Sinus Rhythm Technical Quality: Fair Exam Date: 09/27/2022 3:17 PM Exam Location: [facility] Patient Status: Outpatient Admit Date: 09/27/2022 Staff Ordering Physician: Charlie Cutler MD [employer] Marine Engineer: Param Ng RDCS Attending Provider: Charlie Cutler MD Referring Physician: He SUBRAMANIAN; Exam Type: CA echo doppler color flow Study Info Indications - heart murmur Complete two-dimensional, color flow and Doppler transthoracic echocardiogram is performed. Summary 1. Complete two-dimensional, color flow and Doppler transthoracic echocardiogram is performed. 2. Left ventricular chamber dimension is normal. 3. Left ventricular systolic function is normal, estimated at 60-65%. 4. The left ventricular diastolic function is grade I diastolic dysfunction. 5. E/e' 16 is elevated. 6. Left atrial chamber dimension is mildly enlarged. 7. There is moderate aortic valve sclerosis. 8. There is mild aortic valve stenosis with a peak velocity of 243 cm/s, mean gradient of 13 mmHg, and aortic valve area of 1.5 cm2. 9. There is trace aortic valve regurgitation. 10. The mitral valve has moderately calcified annulus. 11. There is trace mitral valve regurgitation. 12. There is trace tricuspid valve regurgitation. 13. No pulmonary hypertension, estimated pulmonary arterial systolic pressure is 29 mmHg. 14. There is trace pulmonic regurgitation. Left Ventricle E/e' 16 is elevated. Left ventricular chamber dimension is normal. Left ventricular systolic function is normal, estimated at 60-65%. The left ventricular diastolic function is grade I diastolic dysfunction. Right Ventricle Right ventricular systolic function is normal and with normal TAPSE 3.2 cm. Right ventricular chamber dimension is normal. Left Atria Left atrial chamber dimension is mildly enlarged. Right Atria Right atrial chamber dimension is normal. Aortic Valve The aortic valve is trileaflet. There is moderate aortic valve sclerosis. There is mild aortic valve stenosis with a peak velocity of 243 cm/s, mean gradient of 13 mmHg, and aortic valve area of 1.5 cm2. There is trace aortic valve regurgitation. Pulmonic Valve There is trace pulmonic regurgitation. Mitral Valve The mitral valve has moderately calcified annulus. There is no mitral valve stenosis. There is trace mitral valve regurgitation. Tricuspid Valve There is trace tricuspid valve regurgitation. No pulmonary hypertension, estimated pulmonary arterial systolic pressure is 29 mmHg. Pericardium/Pleural There is no pericardial effusion. Inferior Vena Cava Normal inferior vena cava with >50% collapse upon inspiration consistent with normal right atrial pressure, 5 mmHg. Aorta The aortic root size at the sinus of Valsalva is normal. Left Ventricular Outflow Tract Name Value Normal LVOT 2D LVOT Diameter 2.1 cm LVOT Doppler LVOT Peak Gradient 3 mmHg LVOT Mean Gradient 2 mmHg LVOT VTI 25 cm LVOT
== END 2022-09-27 14:51 | disposition home or self-care (01) ==
PROVIDERS: PCP Emergency Medicine; Visit Provider Emergency Medicine
DX: R01.1 Cardiac murmur, unspecified (principal); I35.0 Nonrheumatic aortic (valve) stenosis
CPT/HCPCS: 93306

== ENCOUNTER 2022-09-28 08:03 | Outpatient (CLI) | payer BC, SELFPAY ==
--- NOTE | ~2022-09-28 | US_ITS ---
EXAMINATION: US venous doppler [facility] DATE: 09/28/2022 09:35 INDICATION: Acute embolism and thrombosis of unspecified TECHNIQUE: Grayscale ultrasound images without and with compression and Doppler ultrasound images of the left lower extremity veins were obtained. COMPARISON: 12/25/2012 FINDINGS: The visualized portions of left common femoral vein, profunda (deep) femoral vein, femoral vein, popl iteal vein, peroneal veins, posterior tibial veins, gastrocnemius vein and greater saphenous vein out flow are patent. IMPRESSION: 1. No deep venous thrombosis in the left lower limb. Reviewed, dictated and finalized at location A.
== END 2022-09-28 08:04 | disposition home or self-care (01) ==
PROVIDERS: PCP Emergency Medicine; Visit Provider Emergency Medicine
DX: M71.20 Synovial cyst of popliteal space [Baker], unspecified knee (principal); I82.409 Acute embolism and thrombosis of unspecified deep veins of unspecified lower extremity
CPT/HCPCS: 93971

== ENCOUNTER 2022-11-10 13:30 | Emergency (ER) | payer BC, SELFPAY ==
[2022-11-10 13:43] VITALS: BP 132/75; PULSE 67; RESP 18; TEMP 36.4; O2SAT 100
--- NOTE | 2022-11-10 13:54 | ED.GENADULT ---
HPI - General Adult General Chief complaint: Upper Respiratory Infection Stated complaint: sorethroat Time Seen by Provider: 11/10/22 13:54 Source: patient Mode of arrival: ambulatory Limitations: no limitations History of Present Illness HPI narrative: 62-year-old female patient presents to the [facility] with complaints of sore throat this started this morning. Patient states his got worse throughout the day. Patient states that she did take care of her granddaughter this week who did test positive for strep on Saturday. Patient denies any fevers, body aches, chills. Denies any abdominal pain, nausea, vomiting or diarrhea. Related Data Home Medications Medication Instructions Recorded Confirmed cholecalciferol (vitamin D3) 125 125 mcg PO DAILY 01/22/20 11/10/22 mcg (5,000 unit) tablet (Vitamin D3) pregabalin 150 mg capsule (Lyrica) 150 mg PO BID 12/12/21 11/10/22 Allergies Allergy/AdvReac Type Severity Reaction Status Date / Time No Known Allergies Allergy Verified 11/10/22 14:10 Review of Systems Review of Systems: CONSTITUTIONAL: Denies fever, chills, or sweats. EYES: Denies visual changes, redness, or discharge. ENT: Denies rhinorrhea, congestion, Positive sore throat, or otalgia. CARDIOVASCULAR: Denies chest pain, palpitations, or edema. RESPIRATORY: Denies cough or dyspnea. GASTROINTESTINAL: Denies abdominal pain, nausea, vomiting, or diarrhea. GENITOURINARY: Denies dysuria or hematuria. SKIN: Denies rash or itching. MUSCULOSKELETAL: Denies back pain, joint pain, or myalgia. NEUROLOGIC: Denies headache, numbness, or weakness. PSYCHIATRIC: Denies anxiety or depression. [facility] Past Medical History Medical History Abnormal CT scan Adrenal mass Arthritis Arthritis of knee Depression Diabetes Generalized osteoarthritis of multiple sites HTN (hypertension) Hx of adenomatous colonic polyps IBS (irritable bowel syndrome) Impingement syndrome of left shoulder Inflammatory arthritis Irritable bowel syndrome with mixed bowel habits Myositis Obesity Obesity (BMI 30-39.9) Osteoporosis Plantar fasciitis of left foot Primary osteoarthritis of right knee Primary stabbing headache Reactive depression Right inguinal hernia Right rotator cuff tendinitis (12/29/18) RLQ abdominal pain Shoulder injury Vision loss Vitamin D deficiency Wears glasses Weight gain Surgical History Surgical History H/O inguinal hernia repair 01/27/2020: lap RIH/periumbilical hernia repair w/ Progrip mesh, davinci assisted History of bilateral oophorectomies History of History of cataract surgery History of cholecystectomy History of cholecystectomy Family History Family History Father Acute myocardial infarction Mother Family history of malignant neoplasm Sibling Family history of malignant neoplasm, Onset Age: 42 Other Asthma Cerebrovascular accident Diabetes mellitus Family history of arthritis Family history of cardiovascular disease Hypertension Social History Social History Smoking status: Never smoker Alcohol intake: current Drinks per week: 2 Substance use: never Living arrangements: with family Occupation/Education: occupation Gender identity (if verbalized by the patient): Female Spiritual care concerns: No Comments At the time of my signature I agree with nursing past medical history, surgical, social, and family history. There is no relevant family history pertinent to the presenting complaint. Exam Narrative: GENERAL: Well-appearing, well-nourished, and in no acute distress. HEAD: Normocephalic, atraumatic. EYES: PERRLA and EOMI. ENT: Nares clear, no rhinorrhea or epistaxis. Mucous membranes moist. posterior pharynx with no
== END 2022-11-10 14:22 | disposition home or self-care (01) ==
PROVIDERS: Emergency Provider Nurse Practitioner Family; PCP Emergency Medicine
DX: J02.9 Acute pharyngitis, unspecified (principal); E11.9 Type 2 diabetes mellitus without complications; I10 Essential (primary) hypertension; M81.0 Age-related osteoporosis without current pathological fracture; E66.9 Obesity, unspecified; Z68.34 Body mass index [BMI] 34.0-34.9, adult; E55.9 Vitamin D deficiency, unspecified; M13.80 Other specified arthritis, unspecified site
CPT/HCPCS: 87081; 87880; 99213; G0463

== ENCOUNTER 2022-11-23 15:30 | Outpatient (CLI) | payer BC, SELFPAY ==
--- NOTE | ~2022-11-23 | XR_ITS ---
XR knee LT 3V DATE: 11/23/2022 15:41 INDICATION: Left knee pain TECHNIQUE: Erhard and standing AP and lateral views COMPARISON: None FINDINGS: There is osteopenia. There is mild superior pole patellar enthesopathy at the quadriceps te ndon insertion site. There is mild periarticular spurring at the patellofemoral joint. There is severe loss of joint space at the medial compartment. There is mild periarticular spurring o f the medial tibial plateau. No fracture or dislocation, periosteal reaction or bone destruction. No radiopaque intra-articular lo ose body or chondrocalcinosis. IMPRESSION: Osteoarthritis of the patellofemoral and particularly medial compartments Osteopenia Reviewed, dictated and finalized at location B. IMPRESSION: Osteoarthritis of the patellofemoral and particularly medial compar tments Osteopenia
== END 2022-11-23 15:31 ==
PROVIDERS: PCP Emergency Medicine; Visit Provider Emergency Medicine
DX: M17.12 Unilateral primary osteoarthritis, left knee (principal); M85.862 Other specified disorders of bone density and structure, left lower leg
CPT/HCPCS: 73562

== ENCOUNTER → 2023-03-07 16:37 | Outpatient (CLI) | payer BC, SELFPAY ==
--- NOTE | ~2023-03-07 | XR_ITS ---
XR foot LT 2V DATE: 03/07/2023 16:54 INDICATION: Left foot pain TECHNIQUE: AP and lateral views COMPARISON: 10/20/2018 left foot FINDINGS: Moderate inferior and particularly prominent posterior calcaneal enthesopathy. Mild periarticular spurring at the tibiotalar joint. Mild osteoarthritis at first metatarsophalangeal joint. No fracture, dislocation, periosteal reaction or bone destruction is detected. IMPRESSION: No significant change since 10/20/2018 Reviewed, dictated and finalized at location L.
== END ==
PROVIDERS: PCP Emergency Medicine; Visit Provider Emergency Medicine
DX: M79.672 Pain in left foot (principal)
CPT/HCPCS: 73620

== ENCOUNTER 2023-05-09 18:26 | Emergency (ER) | payer MEDICARE, SELFPAY ==
[2023-05-09 18:36] VITALS: BP 147/75; PULSE 75; RESP 18; TEMP 36.2; O2SAT 96
--- NOTE | 2023-05-09 18:36 | ED.EYEPROB ---
HPI - Eye Problem General Chief complaint: Eye Problems Stated complaint: Right Eye Irritation Time Seen by Provider: 05/09/23 19:00 Source: patient and RN notes reviewed Mode of arrival: ambulatory Limitations: no limitations History of Present Illness HPI Narrative: 63-year-old female presents concern for right eye redness, irritation, grittiness, discharge. Reports symptoms started yesterday. Reports the record was crusty this morning. Reports watery drainage throughout the day. She denies any injury, trauma to the eye. She reports she flushed her eye without relief an used moisturizing eyedrops out relief MD chief complaint: eye redness Related Data Home Medications Medication Instructions Recorded Confirmed cholecalciferol (vitamin D3) 125 125 mcg PO DAILY 01/22/20 05/09/23 mcg (5,000 unit) tablet (Vitamin D3) Allergies Allergy/AdvReac Type Severity Reaction Status Date / Time No Known Allergies Allergy Verified 05/09/23 19:01 Review of Systems Review of Systems: CONSTITUTIONAL: Denies malaise, chills, sweats, or fever. EYES: Reports blurry vision in the right eye. Reports right eye redness, irritation, discharge. ENT: Denies rhinorrhea, congestion, sinus pain, otalgia or sore throat. SKIN: Denies rash or itching. NEUROLOGIC: Denies numbness, weakness, or headache. PSYCHIATRIC: Denies anxiety or depression. All systems reviewed & are unremarkable except as noted in HPI and below PMFSH Past Medical History Medical History Abnormal CT scan Adrenal mass Arthritis Arthritis of knee Depression Diabetes Generalized osteoarthritis of multiple sites HTN (hypertension) Hx of adenomatous colonic polyps IBS (irritable bowel syndrome) Impingement syndrome of left shoulder Inflammatory arthritis Irritable bowel syndrome with mixed bowel habits Myositis Obesity Obesity (BMI 30-39.9) Osteoporosis Plantar fasciitis of left foot Primary osteoarthritis of right knee Primary stabbing headache Reactive depression Right inguinal hernia Right rotator cuff tendinitis (12/29/18) RLQ abdominal pain Shoulder injury Vision loss Vitamin D deficiency Wears glasses Weight gain Surgical History Surgical History H/O inguinal hernia repair 01/27/2020: lap RIH/periumbilical hernia repair w/ Progrip mesh, davinci assisted History of bilateral oophorectomies History of History of cataract surgery History of cholecystectomy History of cholecystectomy Family History Family History Father Acute myocardial infarction Mother Family history of malignant neoplasm Sibling Family history of malignant neoplasm, Onset Age: 42 Other Asthma Cerebrovascular accident Diabetes mellitus Family history of arthritis Family history of cardiovascular disease Hypertension Social History Social History (Updated 01/28/23 @ 15:06 by Stephani Carreon MA) Smoking status: Never smoker Alcohol intake: current Drinks per week: 2 Substance use: never Current Housing: Decline to Answer Concerned About Future Housing: Decline to Answer Difficulty Paying Gas/Electric Bills: Decline to Answer Difficulty Paying for Meds: Decline to Answer Currently Unemployed: Decline to Answer Education: Decline to Answer Difficulty w/ Childcare or Family Care: Decline to Answer Living arrangements: with family Occupation/Education: occupation Gender identity (if verbalized by the patient): Female Spiritual care concerns: No Comments At time of signature, agree with nursing past medical, surgical, social and family history. There is no relevant family history pertinent to the presenting complaint Exam Narrative: GENERAL: Well-appearing, well-nourished, and in no acute distress. HEAD: Normocephalic, atrauma
== END 2023-05-09 19:14 | disposition home or self-care (01) ==
PROVIDERS: Emergency Provider Nurse Practitioner; PCP Emergency Medicine
DX: H10.9 Unspecified conjunctivitis (principal); E11.9 Type 2 diabetes mellitus without complications; M15.0 Primary generalized (osteo)arthritis; I10 Essential (primary) hypertension; E66.9 Obesity, unspecified; Z68.34 Body mass index [BMI] 34.0-34.9, adult; M81.0 Age-related osteoporosis without current pathological fracture
CPT/HCPCS: 99213; G0463

== ENCOUNTER 2023-05-31 16:04 | Emergency (ER) | payer MEDICARE, SELFPAY ==
[2023-05-31 16:14] VITALS: BP 123/66; PULSE 80; RESP 16; TEMP 36.2; O2SAT 99
--- NOTE | 2023-05-31 17:07 | ED.GENADULT ---
HPI - General Adult General Chief complaint: Nausea/Vomiting/Diarrhea Stated complaint: Stomach Pain, Diarrhea Source: patient, RN notes reviewed and old records reviewed Mode of arrival: ambulatory Limitations: no limitations History of Present Illness HPI narrative: 63 year old female presents to express care with complaints of having some nasal stuffiness,cough and sneezing,and some headache, abdominal cramping with episodes x2 of diarrhea this afternoon.Patient reports that she felt fine this morning and since around noon she has felt bad. Patient denies any known fevers or chills reports feels achy. Patient has not taken any OTC medications for her symptoms MD complaint: abdominal cramping with diarrhea,feels achy,nasal stuffiness,cough,headache Onset (ago): hour(s) (noon today) Severity scale (1-10): 5 Treatments prior to arrival: none Related Data Home Medications Medication Instructions Recorded Confirmed cholecalciferol (vitamin D3) 125 125 mcg PO DAILY 01/22/20 05/31/23 mcg (5,000 unit) tablet (Vitamin D3) berberine-herbal comb no.18 capsule See Rx Instructions PO .COMPLEX 05/29/23 05/31/23 dorzolamide 2 % eye drops 1 drp EACH EYE BID 05/31/23 05/31/23 latanoprost 0.005 % eye drops 2 drp EACH EYE DAILY 05/31/23 05/31/23 Allergies Allergy/AdvReac Type Severity Reaction Status Date / Time No Known Allergies Allergy Verified 05/31/23 16:20 Review of Systems Review of Systems: CONSTITUTIONAL: Denies fever, chills, or sweats. ENT: States nasal stuffiness with rhinorrhea, congestion, no sore throat, or otalgia. CARDIOVASCULAR: Denies chest pain, palpitations, or edema. RESPIRATORY: states some intermittent cough denies dyspnea. GASTROINTESTINAL: Reports abdominal crampy,no nausea, vomiting, positive diarrhea. GENITOURINARY: Denies dysuria or hematuria. SKIN: Denies rash or itching. MUSCULOSKELETAL: Denies back pain, joint pain,reports body aches NEUROLOGIC: States headache, no numbness, or weakness. All systems reviewed & are unremarkable except as noted in HPI and below PMFSH Past Medical History Medical History Abnormal CT scan Adrenal mass Arthritis Arthritis of knee Depression Diabetes Generalized osteoarthritis of multiple sites HTN (hypertension) Hx of adenomatous colonic polyps Hypertension IBS (irritable bowel syndrome) Impingement syndrome of left shoulder Inflammatory arthritis Irritable bowel syndrome with mixed bowel habits Myositis Obesity Obesity (BMI 30-39.9) Osteoporosis Plantar fasciitis of left foot Primary osteoarthritis of right knee Primary stabbing headache Reactive depression Right inguinal hernia Right rotator cuff tendinitis (12/29/18) RLQ abdominal pain Shoulder injury Vision loss Vitamin D deficiency Wears glasses Weight gain Surgical History Surgical History H/O inguinal hernia repair 01/27/2020: lap RIH/periumbilical hernia repair w/ Progrip mesh, davinci assisted History of bilateral oophorectomies History of History of cataract surgery History of cholecystectomy History of cholecystectomy Family History Family History Father Acute myocardial infarction Mother Family history of malignant neoplasm Sibling Family history of malignant neoplasm, Onset Age: 42 Other Asthma Cerebrovascular accident Diabetes mellitus Family history of arthritis Family history of cardiovascular disease Hypertension Social History Social History Smoking status: Never smoker Alcohol intake: current Drinks per week: 2 Substance use: never Current Housing: Decline to Answer Concerned About Future Housing: Decline to Answer Difficulty Paying Gas/Electric Bills: Decline to Answer Difficulty Paying for Meds: Dec
== END 2023-05-31 17:20 | disposition home or self-care (01) ==
PROVIDERS: Emergency Provider Registered Nurse; PCP Emergency Medicine
DX: B34.9 Viral infection, unspecified (principal); R19.7 Diarrhea, unspecified; Z20.822 Contact with and (suspected) exposure to COVID-19; E11.9 Type 2 diabetes mellitus without complications; I10 Essential (primary) hypertension; M81.0 Age-related osteoporosis without current pathological fracture; E55.9 Vitamin D deficiency, unspecified; M15.9 Polyosteoarthritis, unspecified; E66.9 Obesity, unspecified; Z68.34 Body mass index [BMI] 34.0-34.9, adult
CPT/HCPCS: 87426; 87804; 99213; G0463

== ENCOUNTER 2023-10-07 15:39 | Outpatient (CLI) | payer MEDICARE, SELFPAY ==
--- NOTE | ~2023-10-07 | CT_ITS ---
EXAMINATION: CT sinus wo con DATE: 10/07/2023 15:53 INDICATION: Acute sinusitis TECHNIQUE: Computed tomography (CT) of the paranasal sinuses was performed without intravenous contra st. The dose-length product was 267.62 mGy-cm. Automated exposure control and iterative reconstructio n technique were employed. COMPARISON: None FINDINGS: There is no significant mucosal thickening. No air-fluid levels. No mucoperiosteal reaction . There is leftward nasal septal deviation. Ostiomeatal units are patent. Mastoids are pneumatized. IMPRESSION: 1. No significant sinus disease. Reviewed, dictated and finalized at location B.
== END 2023-10-07 15:40 ==
LOC: MICIMG 15:40
PROVIDERS: PCP Emergency Medicine; Visit Provider Emergency Medicine
DX: J01.90 Acute sinusitis, unspecified (principal)
CPT/HCPCS: 70486

== ENCOUNTER 2024-03-19 09:55 | Outpatient (CLI) | payer MEDICARE, SELFPAY ==
--- NOTE | ~2024-03-19 | MM_ITS ---
EXAMINATION: MM screening eleon[facility] BI w tommy HISTORY: Screening mammogram TECHNIQUE: Craniocaudal and mediolateral oblique 3-D tomosynthesis images were obtained and synthetic 2-D images were generated. CAD analysis was submitted and interpreted. COMPARISON: 05/01/2022, 02/25/2018 BREAST PARENCHYMAL COMPOSITION:Not Dense. There are scattered areas of fibroglandular density. FINDINGS: No suspicious mass, calcification, or architectural distortion are identified in either finesse ast to suggest malignancy. There has been no suspicious interval change. IMPRESSION: No mammographic evidence of malignancy. Recommend routine screening mammography in one year. BI-RADS Category 1: Negative Reviewed, dictated and finalized at location . [employer]
== END 2024-03-19 09:56 | disposition home or self-care (01) ==
LOC: MICIMG 09:56
PROVIDERS: PCP Emergency Medicine; Visit Provider Emergency Medicine
DX: Z12.31 Encounter for screening mammogram for malignant neoplasm of breast (principal)
CPT/HCPCS: 77063; 77067

== ENCOUNTER 2024-09-21 10:59 | Outpatient (CLI) | payer MEDICARE, SELFPAY ==
--- NOTE | ~2024-09-21 | DEXA_ITS ---
Bone Density Report Name: RAFAELA LEWIS Age: 64 Sex: Female Ethnicity: White Date of : 1960 Indication: postmenopausal; screening for osteoporosis; height loss; Referring Provider: MARIAELENA NUNEZ Study: Bone densitometry was performed. Exam Date: September 21, 2024 Accession number: [id number] Bone Density: Region BMD T-score Z-score Classification AP Spine(L1-L4) 1.149 0.9 2.8 Normal Femoral Neck (Left) 0.878 0.3 1.9 Normal Total Hip (Left) 1.067 1.0 2.3 Normal Femoral Neck (Right) 0.852 0.0 1.6 Normal Total Hip (Right) 1.004 0.5 1.8 Normal Total Hip Mean 1.035 0.8 2.1 Normal World Health Organization criteria for BMD impression classify patients as: Normal (T-score at or above -1.0), Osteopenia (T-score between -1.0 and -2.5), or Osteoporosis (T-score at or below -2.5). 10-year Fracture Risk: FRAX not reported because: All T-scores for Spine Total, Hip Total, Femoral Neck at or above -1.0 Clinical Information Provided by Patient: Has used the following medications: Vitamin D, control in past Patient maximum height was 69 Menopause Age: 53 Drinks caffeinated beverages Onset of menses at age 10 Number of children 2 Impression: The patient has normal bone mass. Discussion: BONE DENSITY IS ABOVE THE MINIMUM DESIRABLE LEVEL AT ALL SKELETAL SITES TESTED. This patient’s bone mineral density is above the minimum desirable level (T-score -1.0 or better) at all sites measured. The patient should follow a healthful lifestyle (good nutrition with adequate calcium and vitamin D, and appropriate weight-bearing exercise). Follow-Up: Consider repeating this study in 5 years or sooner if there is some new clinical indication. Reported by: DAIN on 09/23/2024 8:32:00 AM. Reviewed, dictated and finalized at location A.
== END 2024-09-21 11:00 | disposition home or self-care (01) ==
LOC: MICIMG 11:00
PROVIDERS: PCP Emergency Medicine; Visit Provider Emergency Medicine
DX: E55.9 Vitamin D deficiency, unspecified (principal); Z78.0 Asymptomatic menopausal state
CPT/HCPCS: 77080